=== PATIENT | female | born 1995 | race Two or more races ===

== ENCOUNTER 2019-03-18 21:05 | Emergency (ER) | END 2019-03-18 22:40 | disposition left against medical advice (07) | LOC: ER 21:05 | DX: Z53.21 Procedure and treatment not carried out due to patient leaving prior to being seen by health care provider (principal) ==

== ENCOUNTER 2020-01-18 15:20 | Emergency (ER) | payer OTHER ==
[2020-01-18 15:34] VITALS: BP 131/84
[2020-01-18] MEDS ORDERED: BUTALB/ACETAMINOPHEN/CAFFEINE 1 TAB EACH PO ONE (15:34)
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
== END 2020-01-18 16:56 | disposition home or self-care (01) ==
LOC: ER 15:20
DX: S16.1XXA Strain of muscle, fascia and tendon at neck level, initial encounter (principal); S29.012A Strain of muscle and tendon of back wall of thorax, initial encounter; S63.502A Unspecified sprain of left wrist, initial encounter; S73.101A Unspecified sprain of right hip, initial encounter; R51 Headache; V43.52XA Car driver injured in collision with other type car in traffic accident, initial encounter
CPT/HCPCS: 99284; 72050; 73502; 72070; 73110; 70450; J3490